=== PATIENT | female | born 1995 | race Caucasian/White ===

== ENCOUNTER 2016-11-20 22:25 | Emergency (ER) | payer OTHER ==
[~2016-11-20] VITALS: Ht 167.6 cm; Wt 95.0 kg
[~2016-11-20 22:25] MED LIST: AZIT250T94 PO; BISM262O23 PO; IBUP-1542 PO; IBUP800T25 PO; PREN1TAB27 PO; ZOF8 PO
[2016-11-20 22:28] VITALS: Ht 167.6 cm; Wt 95.0 kg
[2016-11-20] MEDS ORDERED: KETOROLAC 15 MG INJ IM STA (22:49)
--- NOTE | 2016-11-20 22:55 | ERD ---
ER Documentation Chief Complaint Date/Time DATE: 11/20/16 TIME: 22:51 Chief Complaint headache x 2 days, hx- migraine HPI This 21-year-old female presents to the emergency department today for headache 24 hours. Patient has history of headaches in the past, states she started getting headaches at age 10. She has been evaluated by her primary care physician in the past and reports takes Naprosyn for headache pain, patient states that treatment is not working. Pain 7/10 on pain scale, headache is described as throbbing bilateral temporal and occipital close ago, patient denies any change in vision, nausea or dizziness, reports sound sensitivity. ROS All systems reviewed and are negative except as per history of present illness. Medications Home Meds Active Scripts Ibuprofen* (Motrin*) 400 Mg Tab, 400 MG PO Q6, #30 TAB Prov:JUDITMILAGRO 11/21/16 Ibuprofen* (Motrin*) 600 Mg Tab, 600 MG PO Q6, #30 TAB Prov:SARAH GALLOWAY 11/01/15 Ondansetron Hcl* (Zofran* ODT) 8 mg -ODT Tab.disper, 8 MG PO Q6 Y for NAUSEA AND /OR VOMITING, #8 TAB Prov:SADE KAPLAN MD 06/07/15 Bismuth Subsalicylate* (Pepto-Bismol*) 262 Mg/15 Ml Oral.susp, 15 ML PO Q3H Y for DIARRHEA for 7 Days, ML Prov:SADE KAPLAN MD 06/07/15 Azithromycin* (Zithromax*) 250 Mg Tablet, 250 MG PO .ZPACK DIRECTED, #6 TAB TAKE 500 MG (2 TABS) THE FIRST DAY THEN 250 MG (1 TAB) DAYS 2-5 Prov:SADE KAPLAN MD 06/07/15 Ibuprofen* (Motrin*) 800 Mg Tab, 800 MG PO Q6, #30 TAB Prov:MARIXA ROBB PA-C 03/17/15 Reported Medications Vit/Iron Fumarate/Fa ( VITAMIN FORMULA TB) 1 Each Tablet, 1 EACH PO BID 07/24/13 Allergies Allergies: Coded Allergies: No Known Allergy (Unverified , 06/07/15) PMhx/Soc History of Surgery: No Anesthesia Reaction: No Hx Neurological Disorder: No Hx Respiratory Disorders: No Hx Cardiac Disorders: No Hx Psychiatric Problems: No Hx Miscellaneous Medical Probl: No Hx Alcohol Use: No Hx Substance Use: No Hx Tobacco Use: No Physical Exam Vitals Vital Signs Date Time Temp Pulse Resp B/P Pulse Ox O2 Delivery O2 Flow Rate FiO2 11/21/16 01:17 75 20 126/77 100 Room Air 11/20/16 22:28 98.6 87 20 154/76 99 Vitals stable, triage notes reviewed Physical Exam Const: No acute distress Head: Atraumatic Eyes: Normal Conjunctiva, PERRLA, EOMI ENT: Normal External Ears, Nose and Mouth. Neck: Full range of motion Resp: Chest rises and falls symmetrically, clear to auscultation bilaterally, no respiratory distress Cardio: Regular rate and rhythm, no murmurs, S1, S2, no S3, S4, hypertension noted Abd: Skin: Back: Ext: Neur: Alert and oriented Face: EOMI, face and pharynx with normal sensation and function Motor: Normal strength throughout Sensation: Normal sensation throughout Speech: Normal Cerebel: Normal coordination Normal gait Normal finger to nose DTR: 2+ and symmetric upper/lower extremities Psych: Normal Mood and Affect Results 24 hrs Current Medications Medications (Trade) Dose Ordered Sig/Skylar Route PRN Reason Start Time Stop Time Status Last Admin Dose Admin Ketorolac Tromethamine (Toradol) 15 mg ONCE STAT IM 11/20/16 22:49 11/20/16 22:51 DC 11/20/16 23:09 Procedures/MDM This 21-year-old female presents to emergency department today with temporal headache radiating to occipital scalp. Patient reports history of headaches since age 10, denies that this headache is different than her usual headaches. Patient has no complaints of visual change. Denies nausea or dizziness, reports sound sensitivity, pain is described as throbbing 7 out of 10 on pain scale. Patient is neurologically stable without deficit. Subarachnoid bleed is unlikely, intracranial masses not suspected at this time. Patient does not recall the exact time headache started. She tried her usual headache medication without relief of symptoms. Patient receives 15 mg intramuscular tramadol in emergency department, ice pack to head. Reassessed after 40 minutes with improvement of symptoms. Patient will be discharged home with Motrin, instructed to stop Naprosyn, follow-up with primary care physician for possible change in migraine treatment. I feel the patient is stable for discharge at this time with outpatient management by primary care physician. I have discussed results, examination findings, the treatment plan with the patient and family present prior to discharge. Indications for emergent reevaluation, side effects of medication were also discussed. All questions were answered. Patient verbalizes understanding and agrees with plan of care. Departure Diagnosis: Primary Impression: Headache Headache type: unspecified Headache chronicity pattern: episodic headache Intractability: not intractable Qualified Code: R51 - Nonintractable episodic headache, unspecified headache type Condition: Good Patient Instructions: Self-Care for Headaches Additional Instructions: Thank you for for coming to [facility] for your care today. Please ask your nurse or provider if you have questions about your care today and do not leave until all your questions have been answered. Please use any medications given as directed and follow-up with your doctor (or the doctor you were referred to) in the next 2-3 days. If you do not have a primary care doctor you may follow up at the [facility] (listed below). You may also use motrin and tylenol as needed for fever and/or pain unless instructed otherwise by your provider or nurse. Indications for more urgent follow-up have been discussed, but you may return to the Emergency Department at ANY time for any worrisome or worsening symptoms. If you have abdominal pain, please know that no test or exam you received is perfect and you should follow up within 8 hours for continued pain. If you had any imaging studies today, such as an X-Ray or CT Scan, these studies will be reviewed later by a radiologist. You will be called if there are important findings that were not identified today, so make sure the contact information you provided at registration is correct. If you received any narcotic pain control medicine today, such as Vicodin, Morphine or Dilaudid, your coordination and judgment may be affected for a number of hours. Please do not drive or operate heavy machinery, and you may want someone to assist you at home. If you were given a prescription for narcotic medication, be aware that it is very addictive- use sparingly and only if necessary. MILAGRO SPAIN November 20, 2016 22:55
[2016-11-21] MEDS ORDERED: IBUP400T22 PO (00:09)
[2016-11-21 01:17] VITALS: BP 126/77; PULSE 75; RESP 20
== END 2016-11-21 01:01 | disposition home or self-care (01) ==
LOC: FTE 22:25
DX: R51 Headache (principal)
CPT/HCPCS: 96372; J1885

== ENCOUNTER 2017-01-10 08:19 | Emergency (ER) | payer OTHER ==
[~2017-01-10] VITALS: Ht 162.6 cm; Wt 95.0 kg
[~2017-01-10 08:19] MED LIST changes: +IBUP400T22 PO
[2017-01-10 08:35] VITALS: Ht 162.6 cm; Wt 95.0 kg
--- NOTE | 2017-01-10 09:18 | ERD ---
ER Documentation Chief Complaint Date/Time DATE: 01/10/17 TIME: 08:50 Chief Complaint ABCESS AND PAIN AT SACRAL AREA HPI 21-year-old female presents emergency department for abscess and pain to left sacral area for 1-1/2 week. Was at the urgent care last week and was prescribed with Motrin and Bactrim. Stated the pain got worse in the last 24 hours. Denies headache, loss of consciousness, dizziness, blurry vision, changes in vision, photophobia, facial pain, ear pain, throat pain, difficulty swallowing, neck pain, shoulder pain, chest pain, cough, hemoptysis, abdominal pain, back pain, loss of appetite, nausea, vomiting, hematochezia, diarrhea, constipation, urinary symptoms, , the possibility of being , bladder and bowel incontinences, extremity weakness, extremity tenderness, numbness or tingling sensation, difficulty walking, recent travel, recent exposure to illness, fever, chills. Allergy: No known drug allergies. PMH: No past medical history. Family medical history: Denies. AO LMP: "3 weeks ago." Medications: Bactrim. Motrin. Surgery: Denies. 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 Stated that she is sleeping most of the time. Denies smoking, use of alcohol, use of illegal drugs. ROS All systems reviewed and are negative except as per history of present illness. Medications Home Meds Active Scripts Cephalexin* (Keflex*) 500 Mg Capsule, 500 MG PO QID for 5 Days, CAP Prov:PASILABANMEMOAR F 01/10/17 Ibuprofen* (Motrin*) 800 Mg Tab, 800 MG PO Q8 Y for PAIN AND OR ELEVATED TEMP, # 30 TAB Prov:PASILABAN,MEMOAR F 01/10/17 Hydrocodone/Acetaminophen ([place] 10-325 Tablet) 1 Each Tablet, 1 TAB PO Q6H Y for PAIN, #15 TAB Prov:PASILABAN,MEMOAR F 01/10/17 Ibuprofen* (Motrin*) 400 Mg Tab, 400 MG PO Q6, #30 TAB Prov:JUDIT,MILAGRO 11/21/16 Ibuprofen* (Motrin*) 600 Mg Tab, 600 MG PO Q6, #30 TAB Prov:SARAH GALLOWAY 11/01/15 Ondansetron Hcl* (Zofran* ODT) 8 mg -ODT Tab.disper, 8 MG PO Q6 Y for NAUSEA AND /OR VOMITING, #8 TAB Prov:SADE KAPLAN MD 06/07/15 Bismuth Subsalicylate* (Pepto-Bismol*) 262 Mg/15 Ml Oral.susp, 15 ML PO Q3H Y for DIARRHEA for 7 Days, ML Prov:SADE KAPLAN MD 06/07/15 Azithromycin* (Zithromax*) 250 Mg Tablet, 250 MG PO .ZPACK DIRECTED, #6 TAB TAKE 500 MG (2 TABS) THE FIRST DAY THEN 250 MG (1 TAB) DAYS 2-5 Prov:SADE KAPLAN MD 06/07/15 Ibuprofen* (Motrin*) 800 Mg Tab, 800 MG PO Q6, #30 TAB Prov:MARIXA ROBB PA-C 03/17/15 Reported Medications Vit/Iron Fumarate/Fa ( VITAMIN FORMULA TB) 1 Each Tablet, 1 EACH PO BID 07/24/13 Allergies Allergies: Coded Allergies: No Known Allergy (Unverified , 06/07/15) PMhx/Soc History of Surgery: No Anesthesia Reaction: No Hx Neurological Disorder: Yes (tension migraines) Hx Respiratory Disorders: No Hx Cardiac Disorders: No Hx Psychiatric Problems: No Hx Miscellaneous Medical Probl: No Hx Alcohol Use: No Hx Substance Use: No Hx Tobacco Use: No Smoking Status: Never smoker Physical Exam Vitals Vital Signs Date Time Temp Pulse Resp B/P Pulse Ox O2 Delivery O2 Flow Rate FiO2 01/10/17 08:35 98.4 121 18 137/91 98 Physical Exam CONSTITUTIONAL: Well-appearing; well-nourished; in no apparent distress. HEAD: Normocephalic; atraumatic. EYES: Conjunctiva clear, sclera non-icteric, EOM intact. PERRL Ears: Hearing intact. EACs clear, TMs non-bulging, non-inflamed, translucent & mobile, ossicles normal appearance, No obstructions, no erythema, no discharges Nose: No obstructions. No polyps. No external lesions. Mucosa non-inflamed. No external lesions, septum and turbinates normal. No rhinorrhea. No discharges. Frontal sinus is non-tender to palpation. Maxillary sinus is non-tender to palpation. MOUTH: Moist mucous membranes, no lesion, no obstructions, no vesicles, no thrush, patent airway Throat: Uvula in midline. Right tonsil is +1 with no erythema, no exudate. Left tonsil is +1 with no erythema, no exudate. Tolerating secretions well. Good gag reflex. Patent airway. Neck: Supple, without lesions, bruits, or adenopathy. No mass. Thyroid non- enlarged and non-tender to palpation. CHEST: Symmetrical chest. Respirations even and not labored. No retractions noted. CARDIOVASCULAR: Normal S1, S2. RRR. No murmurs, gallops. RESPIRATORY: Normal chest excursion with respiration; breath sounds clear and equal bilaterally; no wheezes, rhonchi, or rales. Breathing even and unlabored. Speaking in clear, full, and complete sentences w/ ease. ABDOMEN: Normal bowel sounds normal. Soft, round, non-distended, non-guarding, no tenderness, no rebound, no organomegaly, no masses, no pulsating abdominal mass. No hernia. No peritoneal signs. : No CVA tenderness. BACK: Symmetrical shoulder. Spine is midline without deformity, tenderness. No evidence of trauma or deformity. PELVIS: Stable pelvis. No evidence of trauma or deformity. MUSCULOSKELETAL: Normal gait and station. No misalignment, asymmetry, crepitation, defects, tenderness, masses, effusions, decreased range of motion, instability, atrophy or abnormal strength or tone in the head, neck, spine, ribs , pelvis or extremities. No calf tenderness. NEUROVASCULAR: Distal pulses are present. Pedal pulse are present, equal, and normal. Capillary refills are < 2 seconds. NEUROLOGIC: Alert and oriented x4. Speaks full and clear sentences. Cranial Nerves II-XII normal. Sensation to pain, touch, and proprioception normal. Grossly unremarkable. No neurologic deficits. Romberg test is negative. PSYCHOLOGICAL: The patients mood and manner are appropriate. No hallucinations , delusions. Not SI. Not HI. Has the capacity to decide for self SKIN: Normal for age and ethnicity; warm; dry; good turgor; no apparent lesions or exudates. No rashes, hives, discoloration. Intact. Swelling and redness measuring approximately 4.5 x 4.5 cm in diameter. Tenderness to palpation. Results 24 hrs Current Medications Medications (Trade) Dose Ordered Sig/Skylar Route PRN Reason Start Time Stop Time Status Last Admin Dose Admin Lidocaine (Xylocaine 1% (Mdv) 20 ml) 20 ml ONCE ONCE SC 01/10/17 09:30 01/10/17 09:31 DC 01/10/17 09:39 Ceftriaxone Sodium (Rocephin) 1 gm ONCE ONCE IM 01/10/17 09:30 01/10/17 09:31 DC 01/10/17 09:38 Acetaminophen/ Hydrocodone Bitart ([place] ()) 1 tab ONCE ONCE PO 01/10/17 09:30 01/10/17 09:31 DC 01/10/17 09:38 Procedures/MDM Examination: Please see physical examination. Disease process, medical treatment was explained to the patient and family member. They verbalized understanding and agreed with the medical treatment, and follow-up care. Treatment: [place]. Incision and drainage for bilateral abscess/pilonidal cyst Sterile technique done. Betadine to area. Lidocaine 1% 3 cc subcu. Incision and drainage done. Drained copious amount of mucopurulent fluid. Packed with quarter inch packing. Dressing applied. No active bleeding. No discharge. Re-evaluation: Denies headache, dizziness, blurry vision, neck pain, shoulder pain, chest pain, back pain, abdominal pain, nausea, vomiting. No episode of emesis in the emergency department. Alert and oriented 4. Speaks full and clear sentences. Respirations even and unlabored. Lung sounds clear to auscultation. Active bowel sounds. There is no right upper/right lower/ epigastric/left upper/left lower abdominal tenderness and light and deep palpation. Negative on Rovsings sign. Negative Jin sign. No peritoneal signs. Ambulatory with steady gait. No neurovascular deficits. No neurological deficits. Consultation: None. Differential diagnosis: Pilonidal cyst versus abscess Medical decision makin-year-old female presents emergency department for abscess and pain to left sacral area for 1-1/2 week. Was at the urgent care last week and was prescribed with Motrin and Bactrim. Stated the pain got worse in the last 24 hours. Patient's complaint, patient history about her complaint, my physical findings, my procedure, my reevaluation after the treatment and procedure are consistent with my final diagnosis of incision and drainage of pilonidal cyst/abscess. Medications prescribed are the following: [place]. Keflex. Motrin. Patient and family member are made aware of the side effects and adverse reactions of the medications prescribed. Instructed on when to seek emergent and medical attention in case allergic/anaphylactic reactions or severe side effects and or adverse reactions to medications. Patient and family member verbalized understanding. Patient instructed Instructed to follow-up with his PCP in 24-48 hours. Come back in 2 days for a wound check and removal of the packing. Instructed to Call 911 for chest pain, shortness of breath. Advised to come back here in ED as soon as possible for severity of symptoms which includes but not limited to: any new symptoms; shortness of breath/difficulty of breathing; cardiovascular changes; severe gastrointestinal symptoms; signs and symptoms of bleeding and or infection; signs of compartment syndrome/neurovascular changes; neurological changes/deficits. Patient and family member verbalized understanding. Upon discharge, patient is alert and oriented x 4, speaks full and clear sentences, denies pain, has no neurological deficits, has no neurovascular deficits, difficulty of breathing. Breathing even and unlabored. Lung sounds are clear to auscultation. Not in distress. Appears comfortable. Ambulatory with steady gait. Appears satisfied with care provided here in ED. Departure Diagnosis: Primary Impression: Abscess Additional Impressions: Pilonidal abscess Pilonidal cyst Encounter for incision and drainage procedure Condition: Stable Additional Instructions: Instructed to follow-up with his PCP in 24-48 hours. Come back in 2 days for a wound check and removal of the packing. Instructed to Call 911 for chest pain, shortness of breath. Advised to come back here in ED as soon as possible for severity of symptoms which includes but not limited to: any new symptoms; shortness of breath/difficulty of breathing; cardiovascular changes; severe gastrointestinal symptoms; signs and symptoms of bleeding and or infection; signs of compartment syndrome/neurovascular changes; neurological changes/deficits. Patient and family member verbalized understanding. OBDULIA MERCADO Jan 10, 2017 09:18
[2017-01-10] MEDS ORDERED: CEFTRIAXONE 1 GM INJ IM ONE (09:30)
[2017-01-10] MEDS ORDERED: LIDOCAINE 1% (MDV) 20 ML INJ SC ONE (09:30)
[2017-01-10] MEDS ORDERED: HYDROCODONE/APAP (10/325) TAB PO ONE (09:30)
[2017-01-10] MEDS ORDERED: HYDR-902 PO (10:23)
[2017-01-10] MEDS ORDERED: CEPH-443 PO (10:23)
[2017-01-10] MEDS ORDERED: IBUP800T25 PO (10:23)
== END 2017-01-10 10:47 | disposition home or self-care (01) ==
LOC: FTE 08:19
DX: L05.01 Pilonidal cyst with abscess (principal)
CPT/HCPCS: 10080; J0696; Z7610; 96372

== ENCOUNTER 2017-01-12 11:46 | Emergency (ER) | payer OTHER ==
[~2017-01-12] VITALS: Ht 162.6 cm; Wt 96.5 kg
[~2017-01-12 11:46] MED LIST changes: +CEPH-443 PO; +HYDR-902 PO
[2017-01-12 11:55] VITALS: Ht 162.6 cm; Wt 96.5 kg
--- NOTE | 2017-01-12 12:13 | ERD ---
ER Documentation Chief Complaint Date/Time DATE: 01/12/17 TIME: 12:10 Chief Complaint RECHECK OF LOWER BACK ABCESS S/P I&D HPI This is a 21-year-old female who presents the emergency department today for a wound check of an abscess that she had drained 2 days ago. Patient states she is taking her antibiotics and feels significantly better and states she is able to walk now. Denies any fevers or chills ROS All systems reviewed and are negative except as per history of present illness. Medications Home Meds Active Scripts Cephalexin* (Keflex*) 500 Mg Capsule, 500 MG PO QID for 5 Days, CAP Prov:PASILAOBDULIA GAMBINO F 01/10/17 Ibuprofen* (Motrin*) 800 Mg Tab, 800 MG PO Q8 Y for PAIN AND OR ELEVATED TEMP, # 30 TAB Prov:OBDULIA MERCADO F 01/10/17 Hydrocodone/Acetaminophen ([place] 10-325 Tablet) 1 Each Tablet, 1 TAB PO Q6H Y for PAIN, #15 TAB Prov:OBDLUIA MERCADO F 01/10/17 Ibuprofen* (Motrin*) 400 Mg Tab, 400 MG PO Q6, #30 TAB Prov:JUDITMILAGRO 11/21/16 Ibuprofen* (Motrin*) 600 Mg Tab, 600 MG PO Q6, #30 TAB Prov:SARAH GALLOWAY 11/01/15 Ondansetron Hcl* (Zofran* ODT) 8 mg -ODT Tab.disper, 8 MG PO Q6 Y for NAUSEA AND /OR VOMITING, #8 TAB Prov:SADE KAPLAN MD 06/07/15 Bismuth Subsalicylate* (Pepto-Bismol*) 262 Mg/15 Ml Oral.susp, 15 ML PO Q3H Y for DIARRHEA for 7 Days, ML Prov:SADE KAPLAN MD 06/07/15 Azithromycin* (Zithromax*) 250 Mg Tablet, 250 MG PO .ZPACK DIRECTED, #6 TAB TAKE 500 MG (2 TABS) THE FIRST DAY THEN 250 MG (1 TAB) DAYS 2-5 Prov:SADE KAPLAN MD 06/07/15 Ibuprofen* (Motrin*) 800 Mg Tab, 800 MG PO Q6, #30 TAB Prov:MARIXA ROBB PA-C 03/17/15 Reported Medications Vit/Iron Fumarate/Fa ( VITAMIN FORMULA TB) 1 Each Tablet, 1 EACH PO BID 07/24/13 Allergies Allergies: Coded Allergies: No Known Allergy (Unverified , 06/07/15) PMhx/Soc History of Surgery: No Anesthesia Reaction: No Hx Neurological Disorder: Yes (tension migraines) Hx Respiratory Disorders: No Hx Cardiac Disorders: No Hx Psychiatric Problems: No Hx Miscellaneous Medical Probl: No Hx Alcohol Use: No Hx Substance Use: No Hx Tobacco Use: No Physical Exam Vitals Vital Signs Date Time Temp Pulse Resp B/P Pulse Ox O2 Delivery O2 Flow Rate FiO2 01/12/17 11:55 96.5 100 16 133/80 100 Physical Exam Const: No acute distress Head: Atraumatic Eyes: Normal Conjunctiva ENT: Normal External Ears, Nose and Mouth. Neck: Full range of motion..~ No meningismus. Resp: Clear to auscultation bilaterally Cardio: Regular rate and rhythm, no murmurs Skin: Left side of buttock with evidence of area of I&D with wound packing in place. Mild purulent drainage. No erythema or warmth Neur: Awake and alert Psych: Normal Mood and Affect Procedures/MDM Is a 21-year-old female who presents emergency department today for a wound check of an abscess that she had drained 2 days ago. I did remove the wound packing that was placed 2 days ago. Patient is afebrile and otherwise well- appearing. She reported feeling significantly better. Low suspicion for sepsis or deep space infection. Patient was instructed to continue taking her antibiotics as prescribed. Wound was redressed here in the emergency department At this time the patient is stable for discharge and outpatient management. Patient should follow up with their PCP in the next 1-2 days. They may return to the emergency department sooner for any persistent or worsening of symptoms. Patient understood and agreed with the plan. Departure Diagnosis: Primary Impression: Wound check, abscess Condition: Fair Patient Instructions: Wound Care Additional Instructions: Call your primary care doctor TOMORROW for an appointment during the next 1-2 days.See the doctor sooner or return here if your condition worsens before your appointment time. Continue taking antibiotics as prescribed Keep wound clean JOVANY THOMPSON PA-C Jan 12, 2017 12:12
== END 2017-01-12 12:21 | disposition home or self-care (01) ==
LOC: FTE 11:46
DX: Z48.01 Encounter for change or removal of surgical wound dressing (principal)
CPT/HCPCS: 99281